=== PATIENT | male | born 1960 | race Caucasian/White ===

== ENCOUNTER 2017-08-11 12:33 | Observation (INO) | payer OTHER ==
[2017-08-10 14:55] LABS: BASOPHILS % 0.3 % (0.0-1.0); EOSINOPHILS # (AUTO) 0.3 (0.0-0.4); EOSINOPHILS % 3.3 % (0.0-6.0); HEMATOCRIT 41.9 % (38.2-49.6); HEMOGLOBIN 14.3 g/dL (14.0-18.0); LYMPHOCYTES % 31.9 % (18.0-39.1); MEAN CORPUSCULAR HGB CONC 34.1 g/dL (31-35); MEAN CORPUSCULAR VOLUME 93.7 fL (81-99); MONOCYTES # (AUTO) 0.8 (0.2-0.8); NEUTROPHILS # (AUTO) 5.1 (2.1-6.9); NEUTROPHILS % 55.3 % (38.7-80.0); PLATELET COUNT 228 x10e3/uL (140-360); RED BLOOD COUNT 4.47 x10e6/uL (4.3-5.7); RED CELL DISTRIBUTION WIDTH 13.7 % (11.7-14.4)
[2017-08-10 15:12] LABS: ALANINE AMINOTRANSFERASE 20 IU/L (0-55); ALBUMIN 3.8 g/dL (3.5-5.0); ALBUMIN/GLOBULIN RATIO 1.1 (0.8-2.0); ALKALINE PHOSPHATASE 70 IU/L (40-150); BLOOD UREA NITROGEN 12 mg/dL (7-26); BUN/CREATININE RATIO 13 (6-25); CALCIUM 9.1 mg/dL (8.4-10.2); CARBON DIOXIDE 23 mmol/L (22-29); CHLORIDE 106 mmol/L (98-107); CHOL/HDL RATIO 3.6 (3.9-4.7); CHOLESTEROL 158 MD/DL (0-199); CREATININE, SERUM 0.95 mg/dL (0.72-1.25); EST GLOMERULAR FILTRATION RATE > 60 ML/MIN (60-); GLUCOSE 104 mg/dL (74-118); HDL CHOLESTEROL 44 MG/DL (40-60); LDL CHOLESTEROL 71 MG/DL (60-130); SODIUM 138 mmol/L (136-145); TRIGLYCERIDES 214 MG/DL (0-149)
[2017-08-11] VITALS (17 sets, daily range): BP systolic 106–128; BP diastolic 78–104
[~2017-08-11] VITALS: Ht 182.9 cm; Wt 103.4 kg
[~2017-08-11 12:33] MED LIST: ASPIRIN81 M1 PO; ATENOLOL25 MG PO; ATORVASTATIN CA20 MG PO; DEXILANT30 MG; DEXILANT60 MG PO; PLAVIX75 MG PO; PRAVACHOL40 MG PO
[2017-08-11] MEDS ORDERED: VERAPAMIL HCL 2.5 MG/ML 2 ML VIAL ONE (17:56)
[2017-08-11] MEDS ORDERED: HEPARIN SOD (PORCINE) 1000 UNIT/ML 30ML ONE (17:56)
[2017-08-11] MEDS ORDERED: LIDOCAINE HCL 2% LOCAL 20 ML VIAL ONE (17:57)
[2017-08-11] MEDS ORDERED: MIDAZOLAM HCL 2 MG/2 ML VIAL ONE ×2 (17:57→18:22)
[2017-08-11] MEDS ORDERED: FENTANYL CITRATE/PF 100MCG/2 ML INJ ONE (17:57)
[2017-08-11] MEDS ORDERED: SODIUM CHLORIDE 0.9% 1000ML 1,000 ML ONE (17:58)
[2017-08-11] MEDS ORDERED: NITROGLYCERIN/D5W 200 MCG/ML 250 ML ONE (17:58)
[2017-08-11] MEDS ORDERED: HEPARIN SOD/SOD CHLORIDE 2,000 ML ONE (17:58)
[2017-08-11] MEDS ORDERED: IOPAMIDOL 370 MG/ML 200 ML INFUS..BTL INJ ONE (17:58)
[2017-08-11] MEDS ORDERED: PRASUGREL 10 MG TAB ONE (18:40)
--- NOTE | 2017-08-11 19:33 | Operative Report ---
DATE OF PROCEDURE: August 11, 2017 INDICATIONS: Coronary artery disease, unstable angina. PROCEDURES PERFORMED 1. Left heart catheterization, selective coronary angiography. 2. PTCA and drug-eluding stent placement to the mid right coronary artery. 3. PTCA and drug-eluting stent placement to the proximal left anterior descending artery. 4. Deployment of right wrist transradial band. COMPLICATIONS: None. RECOMMENDATIONS: Dual antiplatelet therapy for life. Access obtained in the right radial artery. Using ultrasound guidance, bypass sheath was placed. The right coronary artery was cannulated using M radial guiding catheter per wire with support and 70% mid right coronary artery lesion was banded using a 3.0 x 24 mm Synergy stent, post dilated with a 4 mm balloon. The same guidance used to cannulate the left anterior descending artery. Proximal to the previously placed stent there was 70% stenosis. Single 3.0 x 12 mm stent was deployed to 24 atmospheres with excellent end result, less than 10% with ____ BRANDON 3 flow in all vessels. No complications. Wire and guide were removed. TR band applied. The patient observed in the hospital overnight. Job#: [id number]
[2017-08-11] MEDS ORDERED: SODIUM CHLORIDE 0.9% 1000ML 1,000 ML IV ONE (23:45)
[2017-08-12] VITALS: BP 117/81
[2017-08-12 04:00] VITALS: BP 89/53
[2017-08-12 06:35] LABS: BASOPHILS % 0.1 % (0.0-1.0); EOSINOPHILS # (AUTO) 0.3 (0.0-0.4); EOSINOPHILS % 3.6 % (0.0-6.0); HEMOGLOBIN 13.5 g/dL (14.0-18.0); LYMPHOCYTES # (AUTO) 2.5 (1.0-3.2); LYMPHOCYTES % 34.4 % (18.0-39.1); MEAN CORPUSCULAR HEMOGLOBIN 32.1 pg (28-32); MEAN CORPUSCULAR HGB CONC 33.8 g/dL (31-35); MEAN CORPUSCULAR VOLUME 95.2 fL (81-99); MONOCYTES # (AUTO) 0.6 (0.2-0.8); MONOCYTES % 8.7 % (4.4-11.3); NEUTROPHILS # (AUTO) 3.8 (2.1-6.9); NEUTROPHILS % 52.9 % (38.7-80.0); PLATELET COUNT 171 x10e3/uL (140-360); RED CELL DISTRIBUTION WIDTH 13.9 % (11.7-14.4)
[2017-08-12 06:52] LABS: ANION GAP 11.4 mmol/L (8-16); BLOOD UREA NITROGEN 16 mg/dL (7-26); BUN/CREATININE RATIO 17 (6-25); CARBON DIOXIDE 26 mmol/L (22-29); CHLORIDE 107 mmol/L (98-107); CREATININE, SERUM 0.95 mg/dL (0.72-1.25); EST GLOMERULAR FILTRATION RATE > 60 ML/MIN (60-); GLUCOSE 97 mg/dL (74-118); POTASSIUM 4.4 mmol/L (3.5-5.1); SODIUM 140 mmol/L (136-145)
[2017-08-12 07:43] VITALS: BP 108/67
[2017-08-12 07:52] VITALS: BP 108/67
[2017-08-12] MEDS ORDERED: ATENOLOL 50 MG TAB PO SCH (09:00)
[2017-08-12] MEDS ORDERED: CLOPIDOGREL BISULFATE 75 MG TAB PO SCH (09:00)
[2017-08-12] MEDS ORDERED: ASPIRIN 81 MG CHEW TAB PO SCH (09:00)
[2017-08-12] MEDS ORDERED: ATORVASTATIN 20 MG TAB PO SCH (09:00)
[2017-08-12 11:28] VITALS: BP 117/74
== END 2017-08-12 14:29 | disposition home or self-care (01) ==
LOC: CATH LAB 12:33 → IMCU 22:51
PROVIDERS: ADMIT Internal Medicine Interventional Cardiology; ATTEND Internal Medicine Interventional Cardiology
DX: I25.118 Atherosclerotic heart disease of native coronary artery with other forms of angina pectoris (principal)
CPT/HCPCS: C9600 ×18; 36415; 80048; 80053; 80061; 85025; G0378; J1644; J2001; J2250; J7030; Q9967

== ENCOUNTER 2020-02-26 18:31 | Emergency (ER) | payer OTHER ==
[~2020-02-26] VITALS: Ht 182.9 cm; Wt 103.4 kg
[2020-02-26 20:08] LABS: BASOPHILS % 0.3 % (0.0-1.0); EOSINOPHILS # (AUTO) 0.3 (0.0-0.4); EOSINOPHILS % 2.6 % (0.0-6.0); HEMATOCRIT 43.3 % (38.2-49.6); HEMOGLOBIN 14.4 g/dL (14.0-18.0); LYMPHOCYTES # (AUTO) 3.3 (1.0-3.2); LYMPHOCYTES % 33.1 % (18.0-39.1); MEAN CORPUSCULAR HEMOGLOBIN 32.1 pg (28-32); MEAN CORPUSCULAR HGB CONC 33.3 g/dL (31-35); MEAN CORPUSCULAR VOLUME 96.4 fL (81-99); MONOCYTES # (AUTO) 0.8 (0.2-0.8); MONOCYTES % 8.3 % (4.4-11.3); NEUTROPHILS # (AUTO) 5.5 (2.1-6.9); NEUTROPHILS % 55.4 % (38.7-80.0); PLATELET COUNT 234 x10e3/uL (140-360); RED BLOOD COUNT 4.49 x10e6/uL (4.3-5.7)
[2020-02-26 20:26] LABS: ALANINE AMINOTRANSFERASE 22 IU/L (0-55); ALBUMIN 4.2 g/dL (3.5-5.0); ALBUMIN/GLOBULIN RATIO 1.2 (0.8-2.0); ALKALINE PHOSPHATASE 77 IU/L (40-150); ANION GAP 14.7 mmol/L (8-16); BLOOD UREA NITROGEN 19 mg/dL (7-26); BUN/CREATININE RATIO 18 (6-25); CALCIUM 8.9 mg/dL (8.4-10.2); CARBON DIOXIDE 23 mmol/L (22-29); CHLORIDE 105 mmol/L (98-107); CREATINE KINASE 223 IU/L (30-200); CREATININE, SERUM 1.04 mg/dL (0.72-1.25); EST GLOMERULAR FILTRATION RATE > 60 ML/MIN (60-); GLUCOSE 102 mg/dL (74-118); POTASSIUM 3.7 mmol/L (3.5-5.1); SODIUM 139 mmol/L (136-145)
== END 2020-02-26 21:45 | disposition home or self-care (01) ==
LOC: ER 18:59
DX: R06.00 Dyspnea, unspecified (principal); R06.02 Shortness of breath; K21.9 Gastro-esophageal reflux disease without esophagitis; E78.00 Pure hypercholesterolemia, unspecified
CPT/HCPCS: 36415; 71045; 80053; 82550; 82553; 83880; 84484; 85025; 85379; 93005; 99283

== ENCOUNTER → 2020-03-14 | Day surgery (SDC) | payer OTHER ==
[~2020-03-14] MED LIST changes: +AMLODIPINE BESYL5 MG PO; +HYOSCYAMINE 0.125 MG TAB ONE; +HYOSCYAMINE SULFATE 0.5 MG/ML INJ ONE; +LIDOCAINE HCL 2% LOCAL INJ 5 ML SDV VIAL INJ ONE; +PANTOPRAZOLE 40 MG 10ML VIAL ONE; +PROPOFOL IV EMULSION 10 MG/ML 20 ML VIAL ONE; +ZEBETA10 MG PO
[2020-03-14 11:40] VITALS: BP 124/71
== END | disposition home or self-care (01) ==
LOC: OR 06:05
PROVIDERS: ATTEND Internal Medicine Gastroenterology
DX: Z12.11 Encounter for screening for malignant neoplasm of colon (principal); K63.5 Polyp of colon; K29.50 Unspecified chronic gastritis without bleeding; K26.9 Duodenal ulcer, unspecified as acute or chronic, without hemorrhage or perforation; K22.8 Other specified diseases of esophagus; K20.90 Esophagitis, unspecified without bleeding; K44.9 Diaphragmatic hernia without obstruction or gangrene; Q40.8 Other specified congenital malformations of upper alimentary tract; Z98.890 Other specified postprocedural states; K57.30 Diverticulosis of large intestine without perforation or abscess without bleeding; K62.89 Other specified diseases of anus and rectum; K64.8 Other hemorrhoids; I10 Essential (primary) hypertension; I25.10 Atherosclerotic heart disease of native coronary artery without angina pectoris; I25.2 Old myocardial infarction; Z01.812 Encounter for preprocedural laboratory examination; Z20.822 Contact with and (suspected) exposure to COVID-19; Z79.82 Long term (current) use of aspirin; Z68.31 Body mass index [BMI] 31.0-31.9, adult; Z95.5 Presence of coronary angioplasty implant and graft; Z80.0 Family history of malignant neoplasm of digestive organs
CPT/HCPCS: 43239; 43450; 45380; 45384; C9113; J1980; J2001; J2704; U0002; 45378

== ENCOUNTER → 2020-03-27 | Outpatient (CLI) | payer OTHER ==
[~2020-03-27] MED LIST changes: -HYOSCYAMINE 0.125 MG TAB ONE; -HYOSCYAMINE SULFATE 0.5 MG/ML INJ ONE; -LIDOCAINE HCL 2% LOCAL INJ 5 ML SDV VIAL INJ ONE; -PANTOPRAZOLE 40 MG 10ML VIAL ONE; -PROPOFOL IV EMULSION 10 MG/ML 20 ML VIAL ONE
== END ==
LOC: DX 09:30
PROVIDERS: ATTEND Surgery
DX: K21.9 Gastro-esophageal reflux disease without esophagitis (principal)
CPT/HCPCS: 74246; U0002